=== PATIENT | male | born 1960 | race Caucasian/White ===

== ENCOUNTER → 2017-05-03 | Outpatient (CLI) | payer MEDICARE, MEDICAID ==
[2016-03-10 10:53] VITALS: BMI 34.9
[~2017-05-03] MED LIST: ALLO-119 PO; AZIT-18 PO; BACI120O2 TP; CALC1TAB24 PO; DIV250ER PO; DIV500ER PO; GADOBENATE 529MG/1ML 15ML VIAL IVP ONE; IMIP50TA33 PO; LEVO125T6 PO; LOPE-147 PO; LORA-629 PO; MOMR ENA; MULT1TAB77 PO; NAPR220T86 PO; NIAC-1 PO; PRAV40TA78 PO
--- NOTE | 2017-05-03 13:03 | RADIOLOGY IMAGING REPORT ---
FACILITY: [facility] - [place] PATIENT NAME: Сергей Hickey : 1960 MR: [id number] V: [id number] EXAM DATE: ORDERING PHYSICIAN: SUSHIL DEL ROSARIO TECHNOLOGIST: Location: [facility] - [place] Patient: Сергей Hickey : 1960 Visit/Account:[id number] Date of Sevice: 05/03/2017 Examination: MR brain without and with contrast Comparison: Head CT 03/09/2016 History: Fragile X syndrome, possible normal pressure hydrocephalus Technique: Multiplane MR imaging was performed through the brain without and with contrast. 15 cc IV multihance was administered. Findings: Diffusion: None Ventricles: Unchanged ventricular dilatation most pronounced in the lateral and third ventricles. No evidence of vestibular aqueduct stenosis. Midline shift: None Extraxial fluid: None Midline craniocervical structures: Thinning of the posterior aspect of the corpus callosum. Parenchyma: Small patches of high signal along the medial bilateral cerebellum on FLAIR acquisition i s favored to represent artifact. Minimal confluent frontal region bilateral white matter high signal . Benign anterior right temporal region cyst measuring 1.5 cm transverse by 0.4 cm craniocaudad. Th is could alternatively represent an extension of the temporal horn mimicking a parenchymal cyst, axia l T2 image seven. Enhancement: Postcontrast acquisitions are mildly limited by motion artifact. No pathologic enhancem ent identified. Vascular flow voids: Normal Orbits and paranasal sinuses: Partially imaged right maxillary sinus mucous retention cyst. Impression: 1. Unchanged ventricular dilatation most pronounced in the lateral and third ventricles without sulc al effacement. This may reflect normal pressure hydrocephalus or congenital ventricular dilatation. 2. Minimal confluent periventricular white matter high signal statistically represents chronic small vessel ischemic change. 3. Unchanged 1.5 x 0.4 cm benign parenchymal cyst in the anterior right temporal region. This could alternatively represent an extension of the right ventricle temporal horn mimicking a parenchymal cy st. Report Dictated By: Shine Kumar MD at 05/03/2017 12:43 PM Report E-Signed By: Shine Kumar MD at 05/03/2017 12:58 PM WSN:[id number]
== END ==
LOC: MRI 10:27
PROVIDERS: ATTEND Psychiatry & Neurology Psychiatry
DX: G93.89 Other specified disorders of brain (principal); G93.0 Cerebral cysts
CPT/HCPCS: 70553; A9577

== ENCOUNTER → 2018-08-28 | Outpatient (CLI) | payer MEDICARE, MEDICAID ==
[2016-03-10 10:53] VITALS: BMI 34.9
[~2018-08-28] MED LIST changes: -GADOBENATE 529MG/1ML 15ML VIAL IVP ONE
--- NOTE | 2018-08-28 09:56 | RADIOLOGY IMAGING REPORT ---
FAC[place]: [facility] [place]IENT NAME: Сергей Hickey : 1960 MR: [id number] V: [id number] EXAM DATE: ORDERING PHYSICIAN: REINA PEARSON TECHNOLOGIST: Location: [facility] - [place] Patient: Сергей Hickey : 1960 Visit/Account:[id number] Date of Sevice: 08/28/2018 KNEE 3 VIEW LEFT, KNEE 3 VIEW RIGHT Indication: Pain Comparison: 06/29/2016 Findings: Right knee: Reidentified and unchanged in appearance is tricompartmental degenerative joint space narrowing witho ut significant osteophyte formation. There is no evidence of joint effusion. There is a stable smal l calcification along the superior aspect of the fibula. Left knee: Reidentified and stable in appearance is mild tricompartmental degenerative joint space narrowing wit hout significant osteophyte formation. Mild spurring of the tibial spines is noted. No joint effusi on is seen. There is a stable small calcification along the superior aspect of the fibula. Impression: 1. Stable mild tricompartmental degenerative osteoarthritis Report Dictated By: Kwabena Hubbard at 08/28/2018 9:49 AM Report E-Signed By: Kwabena Hubbard at 08/28/2018 9:51 AM WSN:[id number]
--- NOTE | 2018-08-28 09:56 | RADIOLOGY IMAGING REPORT ---
FAC[place]: [facility] [place]IENT NAME: Сергей Hickey : 1960 MR: [id number] V: [id number] EXAM DATE: ORDERING PHYSICIAN: REINA PEARSON TECHNOLOGIST: Location: [facility] Patient: Сергей Hickey : 1960 Visit/Account:[id number] Date of Sevice: 08/28/2018 KNEE 3 VIEW LEFT, KNEE 3 VIEW RIGHT Indication: Pain Comparison: 06/29/2016 Findings: Right knee: Reidentified and unchanged in appearance is tricompartmental degenerative joint space narrowing witho ut significant osteophyte formation. There is no evidence of joint effusion. There is a stable smal l calcification along the superior aspect of the fibula. Left knee: Reidentified and stable in appearance is mild tricompartmental degenerative joint space narrowing wit hout significant osteophyte formation. Mild spurring of the tibial spines is noted. No joint effusi on is seen. There is a stable small calcification along the superior aspect of the fibula. Impression: 1. Stable mild tricompartmental degenerative osteoarthritis Report Dictated By: Kwabena Hubbard at 08/28/2018 9:49 AM Report E-Signed By: Kwabena Hubbard at 08/28/2018 9:51 AM WSN:[id number]
== END ==
LOC: RAD 08:22
PROVIDERS: ATTEND Family Medicine
DX: M17.0 Bilateral primary osteoarthritis of knee (principal)